=== PATIENT | male | born 1970 | race African-American/Black ===

== ENCOUNTER 2024-09-29 11:21 | Emergency (ER) | payer OTHER ==
[~2024-09-29] VITALS: Ht 182.9 cm; Wt 100.6 kg
[2024-09-29 14:57] VITALS: BP 155/109; PULSE 84; RESP 20; TEMP 98; O2SAT 98
[2024-09-29] MEDS ORDERED: TOBRSUS34 RIGHTEYE (15:26)
[2024-09-29] MEDS ORDERED: TOBRSUS34 EACHEYE (15:26)
--- NOTE | 2024-09-29 15:26 | ED.PDOC ---
Eye-HPI HPI Comments This is a 54 year old male who was here for pink eye in both eyes, Started antibiotics drops. has been using the same cloth over and over to wipe eyes for the tearing. He is not washing his hands before touching his eyes. Chief Complaint: Eye Problem Time Seen by MD: 15:17 Primary Care Provider: none Reviewed Notes: Nurses Notes, Account Specialist Notes, Medications, Allergies Allergies: Coded Allergies: NO KNOWN ALLERGIES (Unverified , 09/29/24) Information Source: Patient Mode of Arrival: Ambulatory Past Medical History PAST MEDICAL HISTORY: Denies Surgical History: Denies all surgeries Social History Smoker: Non-Smoker Alcohol: Denies ETOH Use Drugs: Denies Drug Use EENTM: reports: eye pain, eye redness, nasal discharge, nose congestion Respiratory: reports: cough All Other Systems: Reviewed and Negative Physical Exam General Appearance: No Apparent Distress, Normal HEENT: PERRL/EOMI, Pharynx Normal, TMs Normal, Other (Bilateral conjuntiva injected, tearing ) Neck: Non-Tender, Normal Inspection Respiratory: Lungs Clear, No Respiratory Distress, Normal Breath Sounds Cardiovascular: Regular Rate/Rhythm Breast Exam: None, Deferred Gastrointestinal: Non Tender, Normal Bowel Sounds, Soft Genitalia: Deferred Pelvic: Deferred Rectal: Deferred Extremities: Normal inspection, Normal range of motion Neurologic: Alert, No Motor Deficits, Normal Affect, Normal Mood Cerebellar Function: NOT DONE Reflexes: NOT DONE Skin: Dry, Warm Lymphatic: No Adenopathy Was a procedure done? Was a procedure done?: No EENT DIFF Eye: Allergic, Corneal Abrasion X-Ray, Labs, Meds, VS Vital Signs Date Time Temp Pulse Resp B/P (MAP) Pulse Ox O2 Delivery O2 Flow Rate FiO2 09/29/24 14:57 84 20 98 Room Air 09/29/24 14:57 98.0 84 20 155/109 (124) 98 98.0 09/29/24 11:52 98.0 87 17 165/115 (132) 100 X-Ray, Labs, Meds, VS Comment Patient seen and examined by me. Patient started meds but has been re-infecting himself with the same cloth. I instructed him that he needs to wash hands before touching his eyes. I will start him on another antibiotic drop with steroid to help the irritation. If no improvement, needs to follow-up with PMD. Time of 1ST Reevaluation: 15:22 Reevaluation 1ST: Improved Patient Education/Counseling: Diagnosis, Treatment, Prognosis, Need For Follow Up Family Education/Counseling: No Family Present Departure 1 Departure Time of Disposition: 15:23 Impression: Primary Impression: Conjunctivitis Disposition: 01 HOME / SELF CARE / HOMELESS Condition: Good Additional Instructions: Wash you hands before you tough your eyes Use meds as directed No contact lens till healed If no improvement, you need to see an eye doctor. e-Prescriptions Tobramycin-Dexamethasone (Tobramycin/Dexamethasone) Dexameth Mariama 1 DROP EACHEYE QID for 7 Days, #5 ML Prov: SABRA ADAMP 09/29/24 Tobramycin-Dexamethasone (Tobramycin/Dexamethasone) Dexameth Mariama 1 DROP RIGHTEYE QID, #5 ML Prov: SABRA ADAMP 09/29/24 Discharged With: Self Critical Care Note Critical Care Time?: No Stability Stability form required: SABRA Sarmiento Sep 29, 2024 15:26
== END 2024-09-29 15:40 | disposition home or self-care (01) ==
LOC: ER 11:21
DX: H10.89 Other conjunctivitis (principal); H10.023 Other mucopurulent conjunctivitis, bilateral

== ENCOUNTER 2024-10-19 11:16 | Emergency (ER) | payer OTHER ==
[~2024-10-19] VITALS: Ht 182.9 cm; Wt 105.1 kg
[~2024-10-19 11:16] MED LIST: TOBRSUS34 EACHEYE; TOBRSUS34 RIGHTEYE
[2024-10-19] MEDS: cloNIDine HCL 0.1 MG TAB PO ONE (11:31)
--- NOTE | 2024-10-19 11:52 | ED.PDOC ---
Back pain HPI HPI Comments A 54 YEAR OLD MALE PRESENTS TO THE ED WITH COMPLAINT OF LOWER BACK PAIN. PATIENT STATES HE HAS BEEN EXPERIENCING LOWER BACK PAIN THAT IS WORSE WITH MOVEMENT FOR THE PAST WEEK. 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 PATIENT DENIES SADDLE ANESTHESIA, URINARY INCONTINENCE, BOWEL INCONTINENCE, FEVER, CHILLS, SHORTNESS OF BREATH, CHEST PAIN, ABDOMINAL PAIN, NAUSEA, VOMITING, HEADACHE, OR OTHER COMPLAINTS. NO OTHER SYMPTOMS OR MODIFYING FACTORS AT THIS TIME. PATIENT IS ALERT, ORIENTED X 4, AND HAS STEADY GAIT. Chief Complaint: Back Pain Time Seen by MD: 11:22 Primary Care Provider: none Reviewed Notes: Nurses Notes, Medications, Allergies Allergies: Coded Allergies: NO KNOWN ALLERGIES (Unverified , 09/29/24) Home Meds Active Scripts Baclofen (Baclofen) 10 Mg Tab, 10 MG PO BID, #20 TAB Prov:MANE DENSON 10/19/24 Ibuprofen (Ibuprofen) 800 Mg Tab, 1 TAB PO TID, #30 TAB Prov:MANE DENSON 10/19/24 Hydrochlorothiazide W/Triamter (Dyazide 37.5/25MG) 1 Cap Cp, 1 CAP PO DAILY, #20 CAP Prov:MANE DENSON 10/19/24 Tobramycin-Dexamethasone (Tobramycin/Dexamethasone) Dexameth Mariama, 1 DROP EACHEYE QID for 7 Days, #5 ML Prov:SABRA ADAM MASCARA MOLDER 09/29/24 Tobramycin-Dexamethasone (Tobramycin/Dexamethasone) Dexameth Mariama, 1 DROP RIGHTEYE QID, #5 ML Prov:SABRA ADAM MASCARA MOLDER 09/29/24 Information Source: Patient Mode of Arrival: Ambulatory Timing: Days Duration: Since onset, Days Location of Back pain: (B) Lumbar Severity: Moderate Prehospital treatment: None Quality: Aching, Cramping Onset: Spontaneous History of: None Modifying Factors: Movement Associated signs and symptoms: None Past Medical History PAST MEDICAL HISTORY: HTN Surgical History: Denies all surgeries Family History Family History: Reviewed,noncontributory to illness Social History Smoker: Non-Smoker Alcohol: Denies ETOH Use Drugs: Denies Drug Use Lives In: Home Constitutional: denies: chills, diaphoresis, fatigue, fever, malaise, sweats, weakness, others EENTM: denies: blurred vision, double vision, ear bleeding, ear discharge, ear drainage, ear pain, ear ringing, eye pain, eye redness, hearing loss, mouth pain, mouth swelling, nasal discharge, nose bleeding, nose congestion, nose pain, photophobia, tearing, throat pain, throat swelling, voice changes, others Respiratory: denies: cough, hemoptysis, orthopnea, SOB at rest, shortness of breath, SOB with excertion, stridor, wheezing, others Cardiovascular: denies: chest pain, dizzy spells, diaphoresis, Dyspnea on exert ion, edema, irregular heart beat, left arm pain, lightheadedness, palpitations, PND, syncope, others Gastrointestinal: denies: abdomen distended, abdominal pain, blood streaked bowels, constipated, diarrhea, dysphagia, difficulty swallowing, hematemesis, melena, nausea, poor appetite, poor fluid intake, rectal bleeding, rectal pain, vomiting, others Genitourinary: denies: burning, dysuria, flank pain, frequency, hematuria, incontinence, penile discharge, penile sore, pain, testicle pain, testicle swelling, urgency, others Neurological: denies: dizziness, fainting, headache, left sided numbness, left sided weakness, numbness, paresthesia, pre-existing deficit, right sided numbness, right sided weakness, seizure, speech problems, tingling, tremors, weakness, others Musculoskeletal: reports: back pain (LOWER BACK PAIN), muscle pain; denies: gout, joint pain, joint swelling, muscle stiffness, neck pain, others Integumetry: denies: bruises, change in color, change in hair/nails, dryness, laceration, lesions, lumps, rash, wounds, others Allergic/Immunocompromised: denies: Difficulty Healing, Frequent Infections, Hives, Itching, others Hematologic/Lymphatic: denies: anemia, blood clots, easy bleeding, easy bruising, swollen glands, others Endocrine: denies: excessive hunger, excessive sweating, excessive thirst, excessive urination, flushing, intolerance to cold, intolerance to heat, unexplained weight gain, unexplained weight loss, others Psychiatric: denies: anxiety, bipolar disorder, depression, hopeless, panic disorder, schizophrenia, sleepless, suicidal, others All Other Systems: Reviewed and Negative Physical Exam General Appearance: No Apparent Distress, Normal HEENT: Normal ENT Inspection, PERRL/EOMI, Pharynx Normal, TMs Normal Neck: Full Range of Motion, Non-Tender, Normal, Normal Inspection Respiratory: Chest Non-Tender, Lungs Clear, No Accessory Muscle Use, No Respiratory Distress, Normal Breath Sounds Cardiovascular: No Edema, No JVD, No Murmur, No Gallop, Normal Peripheral Pulses, Regular Rate/Rhythm Breast Exam: Deferred Gastrointestinal: No Organomegaly, Non Tender, No Pulsatile Mass, Normal Bowel Sounds, Soft Genitalia: Deferred Pelvic: Deferred Rectal: Deferred Extremities: No calf tenderness, Normal capillary refill, Normal inspection, Normal range of motion, Non-tender, No pedal edema Musculoskeletal : Location: Bilateral Extremity Location: Back Apperance: Tenderness (AND MUSCLE SPASM ON LOW BACK, NO BONY TENDERNESS, SWELLING AND DEFORMITY. ) Neurologic: Alert, respiratory care assistant II-XII nml as Tested, No Motor Deficits, Normal Affect, Normal Mood, No Sensory Deficits Cerebellar Function: Normal Reflexes: Normal Skin: Dry, Normal Color, Warm Peripheral Pulses: 2+ carotid (R), 2+ carotid (L) Lymphatic: No Adenopathy Was a procedure done? Was a procedure done?: No Back Pain Differential Dx Differential Diagnosis: Musculoskeletal Pain Other Differential Diagnosis LOW BACK STRAIN, MUSCLE SPASM X-Ray, Labs, Meds, VS Vital Signs Date Time Temp Pulse Resp B/P (MAP) Pulse Ox O2 Delivery O2 Flow Rate FiO2 10/19/24 12:41 82 16 140/98 (112) 97 10/19/24 12:40 140/98 10/19/24 11:53 98.3 85 20 182/137 (152) 96 98.3 10/19/24 11:53 85 20 96 Room Air 10/19/24 11:31 182/137 10/19/24 11:22 98.3 85 20 182/137 (152) 96 Current Medications Medications (Trade) Dose Ordered Sig/Brian Route Start Time Stop Time Status Last Admin Clonidine HCl (Catapres Tablet) 0.2 mg ONCE ONCE PO 10/19/24 11:30 10/19/24 11:31 DC 10/19/24 11:31 INDICATION: PAIN, NO INJURY COMPARISON: None TECHNIQUE: 3 views of the lumbar spine were obtained. FINDINGS: The lumbar vertebral alignment is normal. The intervertebral disc spaces are well-maintained. No significant facet arthropathy is noted. No acute fracture, vertebral compression deformity or aggressive osseous lesions. The paravertebral soft tissues are grossly unremarkable. IMPRESSION: No acute fracture. ATED BY: FANNY FELDMAN MD DICTATED DATE/TIME: 10/19/241212 SIGNED BY: FANNY FELDMAN MD SIGNED DATE/TIME: 10/19/241212 CC: X-Ray, Labs, Meds, VS Comment EXTERNAL MEDICAL RECORDS REVIEWED: [NONE] INDEPENDENT HISTORIANS: [NONE] SOCIAL DETERMINANTS OF HEALTH: [NONE] LABS ORDERED: NONE REVIEWED AND INTERPRETED RESULTS: NONE IMAGING ORDERED: XR L-SPINE TREATMENTS ORDERED: CLONIDINE 0.2 MG P.O. PROCEDURES PERFORMED: NONE CRITICAL CARE TIME: NONE I HAVE DISCUSSED THE PATIENT WITH THE ATTENDING PHYSICIAN DR. CLEMENT AND HE AGREES WITH THE PATIENT'S PLAN OF CARE AND DISPOSITION. BASED ON HISTORY OF PRESENT ILLNESS, AND PHYSICAL EXAM, PATIENT WILL BE DISCHA RGED HOME. DISCUSSED PLAN FOR DISCHARGE HOME WITH RX []. MEDICATION WARNINGS GIVEN. SHARED DECISION MAKING: PATIENT INSTRUCTED TO FOLLOW UP WITH PRIMARY CARE PROVIDER IN 1-2 DAYS FOR RE-EVALUATION OF SYMPTOMS. PATIENT VERBALIZES UNDERSTANDING TO RETURN TO ED FOR NEW OR WORSENING SYMPTOMS OR IF FOLLOW UP WITH PCP CANNOT BE OBTAINED. PATIENT FEELS COMFORTABLE GOING HOME AT THIS TIME. ALL QUESTIONS ADDRESSED AT TIME OF DISCHARGE. Images Reviewed?: Images reviewed and evaluated by me Time of 1ST Reevaluation: 12:48 Reevaluation 1ST: Improved Patient Education/Counseling: Diagnosis, Treatment, Need For Follow Up Family Education/Counseling: Diagnosis, Treatment, Need For Follow Up Medical Screening: No EMC Exist At This Time Departure 1 Departure Time of Disposition: 12:48 Impression: Primary Impression: Low back strain Qualified Codes: S39.012A - Strain of muscle, fascia and tendon of lower back, initial encounter Additional Impressions: HTN (hypertension) Qualified Codes: I10 - Essential (primary) hypertension Medical non-compliance Disposition: HOME / SELF CARE / HOMELESS Condition: Stable Additional Instructions: FOLLOW-UP WITH PCP IN 1 TO 2 DAYS. TAKE MEDICATIONS PRESCRIBED. RETURN TO ED FOR ANY NEW OR WORSENING SYMPTOMS. e-Prescriptions Baclofen (Baclofen) 10 Mg Tab 10 MG PO BID, #20 TAB Prov: MANE DENSON 10/19/24 Ibuprofen (Ibuprofen) 800 Mg Tab 1 TAB PO TID, #30 TAB Prov: MANE DENSON 10/19/24 Hydrochlorothiazide W/Triamter (Dyazide 37.5/25MG) 1 Cap Cp 1 CAP PO DAILY, #20 CAP Prov: MANE DENSON 10/19/24 Discharged With: Self Critical Care Note Critical Care Time?: No Stability Stability form required: No I personally scribed for MANE DENSON ([email or web address]) on 10/19/24 at 11:52. Electronically submitted by Bertin Smith ([email or web address]). I personally scribed for MANE DENSON ([email or web address]) on 10/19/24 at 12:24. Electronically submitted by Bertin Smith ([address]). MANE DENSON Oct 19, 2024 11:52
[2024-10-19 11:53] VITALS: TEMP 98.3
--- NOTE | 2024-10-19 12:15 | DVH ---
INDICATION: PAIN, NO INJURY COMPARISON: None TECHNIQUE: 3 views of the lumbar spine were obtained. FINDINGS: The lumbar vertebral alignment is normal. The intervertebral disc spaces are well-maintained. No significant facet arthropathy is noted. No acute fracture, vertebral compression deformity or aggressive osseous lesions. The paravertebral soft tissues are grossly unremarkable. IMPRESSION: No acute fracture.
[2024-10-19 12:41] VITALS: BP 140/98; PULSE 82; RESP 16; O2SAT 97
[2024-10-19] MEDS ORDERED: TRIA37.587 PO (12:45)
[2024-10-19] MEDS ORDERED: IBUP-1456 PO (12:45)
[2024-10-19] MEDS ORDERED: BACL10TA PO (12:45)
== END 2024-10-19 12:47 | disposition home or self-care (01) ==
LOC: ER 11:16
DX: S39.012A Strain of muscle, fascia and tendon of lower back, initial encounter (principal); I10 Essential (primary) hypertension; Z79.899 Other long term (current) drug therapy; X58.XXXA Exposure to other specified factors, initial encounter; Y93.89 Activity, other specified; Y92.89 Other specified places as the place of occurrence of the external cause; Y99.8 Other external cause status
CPT/HCPCS: 72100